=== PATIENT | female | born 1975 | race Two or more races ===

== ENCOUNTER 2024-07-13 05:45 | Day surgery (SDC) | payer MEDICAID, SELFPAY ==
[2024-07-12 12:17] VITALS: BMI 22.4
[2024-07-12 13:33] LABS: Basophils % (Auto) 0 % (0-2.5); Eosinophils # (Auto) 0.1 Thou/mm3 (0.0-0.5); Eosinophils % (Auto) 1 % (0-10); Hematocrit 41.7 % (36.0-46.0); Immature Granulocytes % (Auto) 0 % (0-0); Immature Granulocytes Auto 0.03 Thou/mm3 (0.00-0.00); Lymphocytes # (Auto) 1.5 Thou/mm3 (1.0-4.8); Lymphocytes % (Auto) 18 % (10-50); Mean Corpuscular HGB Conc 33.6 g/dl (31.0-37.0); Mean Corpuscular Hemoglobin 31.7 pg (25.0-35.0); Mean Corpuscular Volume 94 fL (80-100); Monocytes # (Auto) 0.4 Thou/mm3 (0.0-0.8); Monocytes % (Auto) 5 % (0-12); Neutrophils # (Auto) 6.3 Thou/mm3 (1.8-7.7); Neutrophils % (Auto) 76 % (37-80); Nucleated Red Blood Cell % 0 /100 WBC (0); Platelet Count 263 Thou/mm3 (140-440); RDW Standard Deviation 44.4 fL (36.4-46.3); Red Blood Count 4.42 Miln/mm3 (4.00-5.20); White Blood Count 8.3 Thou/mm3 (3.6-11.0)
[2024-07-12 13:42] LABS: Beta HCG,Quantitative 3 mIU/mL (<5.0)
[2024-07-12 14:24] LABS: Hepatitis A Antibody IgM Non Reactive (Non React); Hepatitis B Core Antibody IgM Non Reactive (Non React); Hepatitis B Surface Antigen Non Reactive (Non React); Hepatitis C Antibody Non Reactive (Non React)
[2024-07-12 16:19] LABS: HIV (1&2) Antibody Rapid Non-Reactive
--- NOTE | 2024-07-12 22:08 | ESHP_ITS ---
Documentation for date of: 07/12/24 CARDIAC TECHNICIAN - HPI History of Present Illness History of present illness: Ms. PRICE is a 49 year old female P1 , here for bartholin cyst marsupialisation. Bharat has been following with me and previously with other providers for concerns of vulvar swelling associated with dyspareunia and vulvar pain.Bharat still feels drea swelling is enlarging . Denied any fever Past Medical History Social History SMOKING STATUS: Never smoker Travel History EBOLA RISK: No Meds Home Medications and Allergies Home Medications ?Medication ?Instructions ?Recorded ?Confirmed ?Type sertraline 50 mg tablet 50 mg PO QDAY 07/12/2407/12 History trazodone 50 mg tablet 50 mg PO HS PRN insomnia 08/3107/12/24 History Allergies Allergy/AdvReac Type Severity Reaction Status Date / Time No Known Allergies Allergy Verified 07/12/24 12:15 Exam - CARDIAC TECHNICIAN Constitutional Constitutional: no acute distress Routine HEENT Exam Head: Present normocephalic and atraumatic Eye: Present EOMI and PERRL ENT: Present mucous membranes moist Routine Neck Exam Neck: Present supple and trachea midline Routine Respiratory Exam Respiratory: Present chest non-tender, lungs clear, normal breath sounds and no resp distress Routine Cardiovascular Exam Cardiovascular: Present RRR Routine Abdominal Exam Abdominal: Present soft and normoactive bowel sounds Routine Extremities Exam Extremities: Present full ROM Routine Skin Exam Skin: Present intact and dry Routine Neurological Exam Neurological: Present alert, oriented X3 and CN II-XII intact Routine Psychiatric Exam Psychiatric: Present normal affect and normal thought process CARDIAC TECHNICIAN - Results Labs 07/12/24 12:47 Labs: Short CBC 07/12/24 Range/Units 12:47 WBC 8.3 (3.6-11.0) Thou/mm3 Hgb 14.0 (12.0-16.0) g/dL Hct 41.7 (36.0-46.0) % Plt Count 263 (140-440) Thou/mm3 Impressions Impression: 49 y/o p1, admitted for bartholin cyst marsupialisation Risk s, options and alternate management discussed Assessment and Plan Additional Assessment & Plan Additional Plan: antibiotic prophylaxis Quality Measures Quality Measures VTE prophylaxis
[2024-07-13] VITALS (7 sets, daily range): BP systolic 115–132; BP diastolic 81–93; PULSE 60–81; RESP 12–16; TEMP 36.4–36.8; O2SAT 96–100; BMI 22.6
--- NOTE | 2024-07-13 07:20 | CHAP ---
Patient was with family member. I gave some words of encouragement and prayer.
--- NOTE | 2024-07-13 08:37 | SUR.PHASEI ---
pt received from OR in recovery bay 4. pt asleep but responds to voice, breathing unlabored on 6l oxymask. v/s stable. report received from Dr. Jiang and Franklyn Cordero.
--- NOTE | 2024-07-13 08:51 | SUR.PHASEI ---
pt able to tolerate oral fluids without difficulty swallowing or nausea/vomiting.
--- NOTE | 2024-07-13 09:55 | SUR.PHASEII ---
pt awake and alert, breathing unlabored on room air. v/s stable. pt able to ambulate to wheelchair with steady gait. d/c instructions given with toy Cristopher in room, all questions answered. pt d/c via wheelchair with all belongings.
--- NOTE | 2024-07-13 10:48 | ESOP_ITS ---
Operative Note - AUTOMOBILE LOCATOR Procedure Date of procedure: 07/13/24 Procedure Performed: Bartholin cyst marsupialization Indication: Bartholin cyst abscess Pre-Op diagnosis: Same Post-Op diagnosis: Same Anesthesia type: General Procedure description: The patient was seen prior to surgery. The potential benefits and risks of the procedure, the likelihood of success, and the problems related to recuperation have been discussed with patient who agrees to proceed. The possible results of nontreatment and significant alternatives to the proposed procedure have also been explained, along with the risks and benefits of the alternatives. Risks and benefits of chosen anesthetic/sedation and possible use of blood/blood products (if appropriate) were discussed.The patient was identified as Cristela Carlos and the procedure verified. A time out was held reviewing the patient id entifiers, procedure planned and allergies. At this point the procedure was begun. The patient was positioned and prepped in routine fashion in the dorsal lithotomy position using yellowfin stirups. On examination under anesthesia, right vulvar swelling at 8 o'clock position about 3 cm extending from the [place] line to the outer side of labia minora was seen. Since 11 sites. Was used for incision and purulent material was seen to be draining which was collected for culture and sent for culture sensitivity. The incision was enlarged using a hemostat and small septations were cleared to drain more purulent material. At this point the incision was sutured so as to keep it open in a circumferential way using 3-0 Vicryl and marsupialization was completed. Hemostasis maintained Estimated blood loss (ml): 5 Complications: none Surgical staff Operation Date: 07/13/24 07:30 Case Staff Anesthesiologist: Madi Jiang Diagnosis Problem List Completed Was Problem List Reviewed/Reconciled?: Yes
== END 2024-07-13 09:55 | disposition home or self-care (01) ==
PROVIDERS: PCP Family Medicine; Referring Provider Student in an Organized Health Care Education/Training Program; Visit Provider Student in an Organized Health Care Education/Training Program
PROC: (CPT 56440; principal; 2024-07-13 07:30)
DX: N75.0 Cyst of Bartholin's gland (principal)
CPT/HCPCS: 56440; 36415; 80074; 84702; 85025; 86703; 86850; 86900; 86901; 87070; 87075; 87205; A4217; A4649; J0131; J0690; J1100; J1885; J2250; J2405; J2704; J3010; J3490

== ENCOUNTER 2024-08-28 07:06 | Emergency (ER) | payer MEDICAID, SELFPAY ==
[2024-08-28 07:39] VITALS: BP 123/78; PULSE 87; RESP 17; TEMP 36.9; O2SAT 98; BMI 21.2
--- NOTE | 2024-08-28 07:49 | EDNOTE_ITS ---
Lower Extremity Injury RME/HPI General Chief Complaint: Ankle/Foot Injury Stated Complaint: LEFT FOOT PAIN Time Seen by Provider: 08/28/24 07:18 Arrival date/time: 08/28/24 07:06 This is a 49-year-old female that comes in with complaints of left foot pain and left ankle pain. Patient states that yesterday she got stepped on and she felt fine yesterday but this morning had extreme pain to her left ankle. Related Data Home Medications ?Medication ?Instructions ?Recorded ?Confirmed sertraline 50 mg tablet 50 mg PO QDAY 07/12/2407/13 trazodone 50 mg tablet 50 mg PO HS PRN insomnia 08/3107/13/24 Previous Rx's ?Medication ?Instructions ?Recorded acetaminophen 500 mg tablet 500 mg PO Q6H PRN fever or pain 07/13/24 (Acetaminophen Extra Strength) #20 tabs ibuprofen 800 mg tablet 800 mg PO Q8H PRN pain #20 t abs 07/13/24 metronidazole 500 mg tablet 500 mg PO BID #14 tabs 09/30 ibuprofen 800 mg tablet 800 mg PO Q6H PRN pain #14 t abs 08/28/24 Allergies Allergy/AdvReac Type Severity Reaction Status Date / Time No Known Allergies Allergy Verified 08/28/24 07:09 Review of Systems Review of Systems Systems Reviewed: All systems reviewed, normal except as documented Past Medical History Social History SMOKING STATUS: Never smoker Travel History EBOLA RISK: No ED Exam Narrative Physical exam: VITAL SIGNS: Reviewed. GENERAL APPEARANCE: Alert and interactive, follows commands, no acute distress HEAD AND FACE: Non-traumatic. ENT: PERRL, conjuctiva pink and clear, eyelid no trauma, Mucous membrane moist. NECK: Supple, nontender, no nuchal rigidity. CHEST: No tenderness, no crepitus, no paradoxical movement, no retractions. LUNGS: breathing even and unlabored HEART: Regular rate, cap refill less than 2 seconds ABDOMEN: Soft, nondistended, no guarding, nontender, no rebound, no masses, NEUROLOGICAL: Gross motor function intact sensory function intact, Appropriate for age. MUSCULOSKELETAL: low back nontender, full range of motion. EXTREMITIES: mild pain to left ankle with movement, Distal neurovascular status intact bilateral foot SKIN: Color pink, dry, no rash, no lacerations, no abrasions, no contusions. Course Quality Measures none Orders Category Date Time Status XR ankle comp LT min 3V Stat Exams 08/28/24 08:44 Completed XR foot comp LT min 3V Stat Exams 08/28/24 08:44 Completed Acetaminophen Tab [Tylenol ES Tab] Med 08/28/24 11:51 Discontinued 1,000 mg PO X1 ONE Ibuprofen Tab [Motrin Tab] Med 08/28/24 11:51 Discontinued 800 mg PO X1 ONE Vital Signs Vital signs: Vital Signs Temperature 98.4 F 08/28/24 07:39 Pulse Rate 87 08/28/24 07:39 Respiratory Rate 17 08/28/24 07:39 Blood Pressure 123/78 08/28/24 07:39 Pulse Oximetry (%) 98 08/28/24 07:39 Oxygen Delivery Method Room Air 08/28/24 07:39 Extremity Injury, Lower MDM Narrative MDM Narrative:: ankle: Findings: Moderate osteopenia No acute fracture No dislocation Impression: No acute fracture foot: Findings: No acute fracture No dislocation No foreign body Impression: No acute fracture No acute fractures seen. Patient encouraged to rest, elevate, and ice. Pt told to followup with pmd in 1-2 days. Come back to ED if symptoms change or worsen. Patient data External records reviewed:: [facility] previous records Clinical information provided by:: patient Social determinants that could affect healthcare access:: none Patient has the following chronic illnesses:: none How is presenting disease/condition affected by chronic disease/condition?: no chronic disease Evaluation data The following diagnostics were reviewed and interpreted by me:: radiology exam(s) Lab and/or radiology exams considered but not ordered:: none Interpretation Summary: see note Medications / Prescriptions Medications or Prescriptions considered but not ordered:: none Medication administrations:: Medication Administration History Discontinued Medications Acetaminophen (Acetaminophen 500 Mg Tablet) 1,000 mg PO X1 ONE Stop: 08/28/24 11:52 Last Admin: 08/28/24 11:58 Dose: 1,000 mg Documented By: BK Ibuprofen (Ibuprofen Tab 400 Mg Tablet) 800 mg PO X1 ONE Stop: 08/28/24 11:52 Last Admin: 08/28/24 11:59 Dose: 800 mg Documented By: BK see [facility] Consultations Consultation(s) initiated? (list below): No Diagnosis Most likely diagnosis given after review of the tests above:: contusion Admission Indicated Admission indicated?: not indicated Admission Request Was there a request for admission?: No Disposition Plan Disposition Plan: Discharge Discharge Attestation Discharge Attestation: The patient and all family members were given an opportunity to ask questions and understood the discharge instructions. Discharge instructions specifically effects, indications for sooner follow up or return to the emergency department, and the expected course of current diagnosis. Patient condition: Stable Discharge Plan Plan Patient Disposition: HOME (Self Care) Patient condition on transfer: Stable Prescriptions/Referrals Prescriptions/Med Rec: New ibuprofen 800 mg tablet 800 mg PO Q6H PRN (Reason: pain) Qty: 14 0RF No Action trazodone 50 mg tablet 50 mg PO HS PRN (Reason: insomnia) sertraline 50 mg tablet 50 mg PO QDAY ibuprofen 800 mg tablet 800 mg PO Q8H PRN (Reason: pain) Qty: 20 0RF acetaminophen [Acetaminophen Extra Strength] 500 mg tablet 500 mg PO Q6H PRN (Reason: fever or pain) Qty: 20 0RF metronidazole 500 mg tablet 500 mg PO BID Qty: 14 0RF Referrals: No Primary/Family,Physician [Primary Care Provider] - In 1 week Problem List Clinical Impression: Contusion of foot Patient/Caregiver Discharge Instructions Discharge Activity: activity as tolerated Education Materials: ED Foot Contusion Additional Instructions: Follow up with primary provider in 1-2 days. Come back to ED if symptoms change or worsen Print Language: Ukrainian Stand Alone Forms: [employer] Award Info., Patient Portal Info Letter PA/EARLY CHILDHOOD EDUCATION INSTRUCTOR Supervising Physician PA/EARLY CHILDHOOD EDUCATION INSTRUCTOR Supervising Physician: cooper
--- NOTE | 2024-08-28 08:44 | XR_ITS ---
Examination: Foot, left, 3 views Technique: AP, oblique, lateral views foot, 3 views Date and time: August 28, 2024 1009 hrs. Date and time of exam: Indications: Patient fell today with injury to the foot, foot pain. Findings: No acute fracture No dislocation No foreign body Impression: No acute fracture
--- NOTE | 2024-08-28 08:44 | XR_ITS ---
EXAMINATION: Ankle, left 3 views . Technique: Ankle AP, oblique, lateral 3 views Date and time of exam: August 28, 2024 1005 hrs. Indications: Patient fell today with injury to the ankle, ankle pain Findings: Moderate osteopenia No acute fracture No dislocation Impression: No acute fracture
[2024-08-28 11:49] VITALS: BP 151/66; PULSE 66; RESP 18; TEMP 36.8; O2SAT 100
[2024-08-28] MEDS: ACETAMINOPHEN 500 MG TABLET 1000 MG PO (11:58)
[2024-08-28] MEDS: IBUPROFEN TAB 400 MG TABLET 800 MG PO (11:59)
== END 2024-08-28 12:02 | disposition home or self-care (01) ==
PROVIDERS: Emergency Provider Family Medicine
DX: S90.32XA Contusion of left foot, initial encounter (principal); W50.0XXA Accidental hit or strike by another person, initial encounter; S99.812A Other specified injuries of left ankle, initial encounter
CPT/HCPCS: 73610; 73630; 99283; A9270